=== PATIENT | female | born 1975 | race Caucasian/White ===

== ENCOUNTER 2022-03-14 23:00 | Emergency (ER) | payer BC ==
[2022-03-14] MEDS ORDERED: cloNIDine 0.1 MG Tab PO ONE (23:21)
[2022-03-14 23:58] LABS: ANION GAP 16.7 mmol/L (5-15); CHLORIDE,CL 101 mmol/L (98-107); ESTIMATED GFR 80 mL/min (>=60); SODIUM,NA 140 mmol/L (136-145)
== END 2022-03-15 00:44 | disposition home or self-care (01) ==
LOC: VM.ED 23:00
DX: F41.9 Anxiety disorder, unspecified (principal); I16.0 Hypertensive urgency; I10 Essential (primary) hypertension
CPT/HCPCS: 71046; 80053; 82550; 83615; 84484; 85025; 93010; 99284; 99285-25; A9270-GY